=== PATIENT | female | born 1995 | race Hispanic/Latino ===

== ENCOUNTER 2016-12-02 08:54 | Emergency (ER) | payer BC ==
[2016-12-02 09:16] VITALS: BMI 24.9
[2016-12-02 09:20] VITALS: RESP 19
[2016-12-02 09:25] VITALS: O2SAT 98
--- NOTE | 2016-12-02 09:41 | ED PDOC ---
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 She denies LOC and reports that she finished her shift after the incident without issue. She reports that her boss told her to get evaluated before returning back. Patient visited the urgent care who told her to visit the emergency room for an evaluation. Denies loss of consciousness , nausea, vomiting, neck pain, vision changes. She denies anti-coagulant use, bleeding disorder, or drug/alcohol use. Past Medical History Reviewed: Historical Data, Nursing Documentation, Vital Signs Vital Signs: Last Vital Signs Temp 98 F 12/02/16 09:17 Pulse 66 12/02/16 09:25 Resp 19 12/02/16 09:25 BP 140/70 12/02/16 09:25 Pulse Ox 98 12/02/16 09:25 - Medical History PMH: No Chronic Diseases - Surgical History Surgical History: No Surg Hx - Family History Family History: States: Unknown Family Hx - Social History Current smoker - smoking cessation education provided: No Alcohol: Social Drugs: Denies - Allergies Allergies/Adverse Reactions: Allergies Allergy/AdvReac Type Severity Reaction Status Date / Time No Known Allergies Allergy Verified 12/02/16 09:14 Review of Systems ROS Statement: Except As Marked, All Systems Reviewed And Found Negative Constitutional: Negative for: Fever, Chills, Other (Loss of consciousness) Eyes: Negative for: Pain, Vision Change, Conjunctivae Inflammation, Redness ENT: Negative for: Ear Pain Cardiovascular: Negative for: Chest Pain, Palpitations Respiratory: Negative for: Cough, Shortness of Breath, SOB with Exertion, Wheezing Gastrointestinal: Negative for: Nausea, Vomiting Musculoskeletal: Negative for: Neck Pain, Shoulder Pain, Arm Pain, Leg Pain Neurological: Positive for: Headache (Mild). Negative for: Weakness, Numbness, Incoordination, Change in Speech, Confusion, Seizures, Altered Mental Status, Dizziness Psych: Negative for: Other (anti-coagulant use, bleeding disorder, or use of drugs/alcohol) Physical Exam - Reviewed Nursing Documentation Reviewed: Yes Vital Signs Reviewed: Yes - Physical Exam Appears: Positive for: Well (well appearing, sitting in stretcher), Non-toxic, No Acute Distress Head Exam: Positive for: ATRAUMATIC (Small hematoma to posterior scalp region. no break in skin. ). Negative for: NORMAL INSPECTION Eye Exam: Positive for: Normal appearance, EOMI, PERRL ENT: Positive for: Normal ENT Inspection, TM Is/Are (WNL), Other (no periorbital swelling or tenderness. normal bite). Negative for: Pharyngeal Erythema Neck: Positive for: Normal, Painless ROM, Supple. Negative for: Pain On Movement Of Neck (No midline c-spine tenderness) Cardiovascular/Chest: Positive for: Regular Rate, Rhythm. Negative for: Murmur Respiratory: Positive for: Normal Breath Sounds. Negative for: Accessory Muscle Use, Respiratory Distress Gastrointestinal/Abdominal: Positive for: Soft. Negative for: Tenderness, Mass , Distended Back: Positive for: Normal Inspection. Negative for: Vertebral Tenderness Extremity: Positive for: Normal ROM Neurologic/Psych: Positive for: Alert, program planner II-XII, Oriented, Gait (Patient ambulated normally around the ER. ). Negative for: Facial Droop - ECG O2 Sat by Pulse Oximetry: 98 (RA) Pulse Ox Interpretation: Normal Medical Decision Making Medical Decision Making: Time: 09:21 Initial impression: Headache after hit on head. Neurologically intact. No vomiting. Initial plan: --Will give patient PO challenge. --Tylenol 650 mg PO --Reevaluation Time: 09:39 --Tolerated PO. --Sandoval CT score of 0. Based on Sandoval CT rules, CT head is not indicated. Spoke with patient at length and gave her detailed return instructions. Upon provider reevaluation patient is feeling better, is medically stable, and requires no further treatment in the ED at this time. Patient will be discharged home. Counseling was provided and all questions were answered regarding diagnosis and need for follow up with PMD. There is agreement to discharge plan. Return if symptoms persist or worsen. Clinical Impression: Headache Scribe Attestation: Documented by Jeannie Foster, acting as a scribe for Heidi Haider MD. Provider Scribe Attestation: All medical record entries made by the Scribe were at my direction and personally dictated by me. I have reviewed the chart and agree that the record accurately reflects my personal performance of the history, physical exam, medical decision making, and the department course for this patient. I have also personally directed, reviewed, and agree with the discharge instructions and disposition. Disposition - Clinical Impression Clinical Impression: Headache Counseled Patient/Family Regarding: Diagnosis - Disposition Disposition: Routine/Home Disposition Time: 09:39 Condition: GOOD Additional Instructions: Return to work on Monday. Follow-up with PMD. Tylenol and ice for pain. Return to ED immediately with any worsening symptoms. Instructions: Concussion (ED), Head Injury (ED) Forms: [facility] ([place]), [facility] ED School/Work Excuse
[2016-12-02 10:17] VITALS: BP 136/76; PULSE 70; TEMP 97.6
== END 2016-12-02 10:17 | disposition home or self-care (01) ==
LOC: H.ER 08:54
DX: S09.90XA Unspecified injury of head, initial encounter (principal); W22.8XXA Striking against or struck by other objects, initial encounter; Y99.0 Civilian activity done for income or pay